=== PATIENT | female | born 1975 | race Caucasian/White ===

== ENCOUNTER 2018-05-25 08:55 | Inpatient (IN) | payer OTHER ==
[2018-05-25 10:49] VITALS: BMI 22.6
--- NOTE | 2018-05-25 11:12 | HP ---
COWS - Scale Resting Pulse: 1= MS 81-100 Sweatin= Chills/Flushing Restless Observation: 1= Difficult to Sit Still Pupil Size: 1= Pupils >than Normal Bone or Joint Aches: 2= Severe Diffuse Aches Runny Nose/ Eye Tearin= Nasal Congestion GI Upset > 30mins: 2= Nausea/Diarrhea Tremor Observation: 2= Slight Tremor Visible Yawning Observation: 2= >3x During Session Anxiety or Irritability: 2=Irritable/Anxious Goose Flesh Skin: 0=Smooth Skin COWS Score: 15 CIWA Score - Admission Criteria [facility] Guidelines: Admission for Medically Managed Detox: Requires at least one of the followin. CIWA greater than 12 2. Seizures within the past 24 hours 3. Delirium tremens within the past 24 hours 4. Hallucinations within the past 24 hours 5. Acute intervention needed for co occurring medical disorder 6. Acute intervention needed for co occurring psychiatric disorder 7. Severe withdrawal that cannot be handled at a lower level of care (continued vomiting, continued diarrhea, abnormal vital signs) requiring intravenous medication and/or fluids 8. Admission ROS [facility] - HPI Chief Complaint: i need help to stop using heroin and cocaine Allergies/Adverse Reactions: Allergies Allergy/AdvReac Type Severity Reaction Status Date / Time haloperidol [From Haldol] Allergy Severe Rash Verified 05/25/18 10:39 History of Present Illness: this 42 years old female with heroin and cocaine dependence seeking detox, withdrawal symptom,never been in detox before, history of asthma hepatitis c injury 10 days ago seen at [facility] in [place],was told to have fx of left rib injury to left 2nd toe no xray done longest period of sobriety 9 years plan to go to rehab from detox Exam Limitations: No Limitations - Ebola screening Have you traveled outside of the country in the last 21 days: No Have you had contact with anyone from an Ebola affected area: No Have you been sick,other than usual withdrawal symptoms: No - Review of Systems Constitutional: Loss of Appetite, Malaise, Night Sweats, Changes in sleep, Weakness EENT: reports: Tearing, Nose Congestion Respiratory: reports: No Symptoms reported Cardiac: reports: No Symptoms Reported GI: reports: Nausea, Poor Appetite, Vomiting, Abdominal cramping : reports: No Symptoms Reported Musculoskeletal: reports: Back Pain, Joint Pain, Muscle Pain, Joint Stiffness Integumentary: reports: Dryness Neuro: reports: No Symptoms reported, Headache, Tremors Endocrine: reports: No Symptoms Reported Hematology: reports: No Symptoms Reported Psychiatric: reports: No Sypmtoms Reported, Judgement Intact, Mood/Affect Appropiate, Orientated x3, other (schizophrenia) Patient History - Patient Medical History Hx Anemia: No Hx Asthma: Yes (on albuterol inhaler) Hx Chronic Obstructive Pulmonary Disease (COPD): No Hx Cancer: No Hx Cardiac Disorders: No Hx Congestive Heart Failure: No Hx Hypertension: No Hx Hypercholesterolemia: No Hx Pacemaker: No HX Cerebrovascular Accident: No Hx Seizures: No Hx Dementia: No Hx Diabetes: No Hx Gastrointestinal Disorders: No Hx Liver Disease: Yes (hepatitis c) Hx Genitourinary Disorders: No Hx Sexually Transmitted Disorders: No Hx Renal Disease (ESRD): No Hx Thyroid Disease: No Hx Human Immunodeficiency Virus (HIV): No (05/24 negative) Hx Hepatitis C: Yes (not treated) Hx Depression: No Hx Suicide Attempt: Yes (cutter) Hx Bipolar Disorder: No Hx Schizophrenia: Yes - Patient Surgical History Hx Section: Yes (x 2 last 18 years ago) - PPD History Previous Implant?: Yes Documented Results: Negative w/o proof Implanted On Prior [facility] Admission?: No PPD to be Administered?: Yes - Reproductive History Patient is a Female of Child Bearing Age (11 -55 yrs old): Yes Last Menstrual Period: 03/14/18 Patient : No - Smoking Cessation Smoking history: Current every day smoker Have you smoked in the past 12 months: Yes Aproximately how many cigarettes per day: 3 Hx Chewing Tobacco Use: No Initiated information on smoking cessation: Yes 'Breaking Loose' booklet given: 05/25/18 - Substance & Tx. History Hx Alcohol Use: No Hx Substance Use: Yes Substance Use Type: Cocaine, Heroin, Marijuana - Substances Abused Marijuana Route: Smoking Frequency: 1-2 times per week Amount used: $5 Age of first use: 14 Date of Last Use: 05/23/18 Heroin Route: Injection Frequency: Daily Amount used: 7 bags Age of first use: 14 Date of Last Use: 05/24/18 Crack Route: Smoking Frequency: 1-2 times per week Amount used: $20 Age of first use: 14 Date of Last Use: 05/24/18 Family Disease History - Family Disease History Family History: Denies Admission Physical Exam [facility] - Vital Signs Vital Signs: Vital Signs - 24 hr 05/25/18 10:32 Temperature 97.1 F L Pulse Rate 87 Respiratory 20 Rate Blood Pressure 133/85 - Physical General Appearance: Yes: Moderate Distress, Tremorous, Irritable, Sweating, Anxious HEENTM: Yes: Normal ENT Inspection, DYLAN, Pharynx Normal Respiratory: Yes: Lungs Clear, Normal Breath Sounds, No Respiratory Distress, Other (fx of left ribs) Neck: Yes: Within Normal Limits, Supple, Trachea in good position Breast: Yes: Breast Exam Deferred Cardiology: Yes: Within Normal Limits, Regular Rhythm, Regular Rate, S1, S2 Abdominal: Yes: Within Normal Limits, Normal Bowel Sounds, Non Tender Genitourinary: Yes: Within Normal Limits Musculoskeletal: Yes: full range of Motion, Back pain, Joint Stiffness, Muscle Pain Extremities: Yes: Tremors, Other (swelling with pain in left 2nd toe with tenderness) Neurological: Yes: Within Normal Limits, labor economist II-XII NML intact, Alert, Motor Strength 5/5 Integumentary: Yes: Dry, Track Ortega (both upper and loer extremities) Lymphatic: Yes: Within Normal Limits - Diagnostic (1) Opioid dependence with withdrawal Current Visit: Yes Status: Acute (2) Cocaine dependence Current Visit: Yes Status: Chronic (3) Cannabis dependence Current Visit: Yes Status: Chronic (4) Hepatitis C Current Visit: Yes Status: Acute (5) Nicotine dependence Current Visit: Yes Status: Acute (6) Schizophrenia Current Visit: Yes Status: Suspected (7) Fracture of rib of left side Current Visit: Yes Status: Acute (8) Contusion of second toe, left Current Visit: Yes Status: Acute (9) IV drug user Current Visit: Yes Status: Acute Cleared for Admission [facility] - Detox or Rehab [facility] Level of Care: Medically Managed Detox Regimen/Protocol: Methadone [facility] Breath Alcohol Content Breath Alcohol Content: 0 Urine Pregancy Test - Result Urine Test Results: Negative- NO Line Present Urine Drug Screen - Results Drug Screen Negative: No Urine Drug Screen Results: THC-Marijuana, LAM-Cocaine, OPI-Opiates, MTD- Methadone, FEN-Fentanyl
[2018-05-25] MEDS ORDERED: guaiFENesin/D-METHORPHAN HB 10 ML UNIT-DOSE CUPS PO PRN (11:47)
[2018-05-25] MEDS ORDERED: MENTHOL/PHENOL 1 EACH UD MM PRN (11:47)
[2018-05-25] MEDS ORDERED: MAG HYDROX/AL HYDROX/SIMETH 30 ML UNIT-DOSE CUP PO PRN (11:47)
[2018-05-25] MEDS ORDERED: LOPERAMIDE HCL 2 MG CAPSULE PO PRN (11:47)
[2018-05-25] MEDS ORDERED: ACETAMINOPHEN 325 MG TABLET (FP) PO PRN (11:47)
[2018-05-25] MEDS ORDERED: MAGNESIUM CITRATE 300 ML BOTTLE PO PRN (11:47)
[2018-05-25] MEDS ORDERED: MAGNESIUM HYDROX 2400MG/30ML ORAL SUSPENSION 30 ML CUP PO PRN (11:47)
[2018-05-25] MEDS ORDERED: IBUPROFEN 400 MG TABLET (FP) PO PRN (11:47)
[2018-05-25] MEDS ORDERED: P-EPHED 60MG/TRIPROLIDI 2.5MG TABLET PO PRN (11:47)
[2018-05-25] MEDS ORDERED: ALBUTEROL SO4 8 GM HFA INHALER IH PRN (11:54)
[2018-05-25] MEDS ORDERED: METHADONE HCL 10 MG TABLET (FOR DETOX USE ONLY) PO ONE ×2 (12:45→23:00)
[2018-05-25] MEDS: diazePAM 5 MG TABLET PO PRN (12:48)
[2018-05-25] MEDS: CYCLOBENZAPRINE HCL 10 MG TABLET (FP) PO PRN (12:49)
[2018-05-25] MEDS: THIAMINE HCL 100 MG TABLET (FP) PO SCH (22:46)
[2018-05-25] MEDS: cloNIDine HCL 0.1 MG TABLET PO SCH (22:47)
[2018-05-26] MEDS ORDERED: METHADONE HCL 10 MG TABLET (FOR DETOX USE ONLY) PO ONE (10:00)
[2018-05-26 10:18] LABS: HEMATOCRIT 39.6 % (32.4-45.2); HEMOGLOBIN 13.1 GM/dL (10.7-15.3); MCH 29.4 pg (25.7-33.7); MCHC 33.1 g/dl (32.0-36.0); MEAN CELL VOLUME 88.8 fl (80-96); MEAN PLT VOLUME 7.1 fl (7.5-11.1); PLATELET COUNT 425 K/MM3 (134-434); RBC 4.46 M/mm3 (3.60-5.2); RDW 16.7 % (11.6-15.6); WHITE BLOOD COUNT 11.7 K/mm3 (4.0-10.0)
[2018-05-26] MEDS: diazePAM 5 MG TABLET PO PRN ×2 (10:23→15:30)
[2018-05-26] MEDS: PRENATAL VITAMINS W/ FOLIC ACID TABLET (FP) PO SCH (10:23)
[2018-05-26] MEDS: cloNIDine HCL 0.1 MG TABLET PO SCH ×2 (10:23→22:34)
[2018-05-26 10:52] LABS: ALBUMIN 3.6 g/dl (3.4-5.0); ALK PHOS 90 U/L (45-117); ANION GAP 9 MMOL/L (8-16); BILIRUBIN,TOTAL 0.6 mg/dL (0.2-1); BLOOD UREA NITROGEN 17 mg/dL (7-18); CHLORIDE 106 mmol/L (98-107); CO2 24 mmol/L (21-32); CREATININE 0.5 mg/dL (0.55-1.3); GLUCOSE,RANDOM 100 mg/dL (74-106); POTASSIUM 3.9 mmol/L (3.5-5.1); SGOT/AST 33 U/L (15-37); SGPT/ALT 48 U/L (13-61); SODIUM 138 mmol/L (136-145); TOT PROT 7.1 g/dl (6.4-8.2)
--- NOTE | 2018-05-26 14:04 | PN ---
BHS COWS - Scale Resting Pulse: 1= DE 81-100 Sweatin= No chills or Flushing Restless Observation: 1= Difficult to Sit Still Pupil Size: 2= Moderately Dilated Bone or Joint Aches: 2= Severe Diffuse Aches Runny Nose/ Eye Tearin= None GI Upset > 30mins: 0= None Tremor Observation of Outstretched Hands: 2= Slight Tremor Visible Yawning Observation: 0= None Anxiety or Irritability: 2=Irritable/Anxious Goose Flesh Skin: 0=Smooth Skin COWS Score: 10 BHS Progress Note (SOAP) Subjective: PATIENT C/O ANXIETY, SHAKES AND BODY ACHES. Objective: 05/26/18 14:01 Vital Signs Temperature 98.4 F 05/26/18 13:46 Pulse Rate 120 H 05/26/18 13:46 Respiratory Rate 16 05/26/18 13:46 Blood Pressure 105/70 05/26/18 13:46 O2 Sat by Pulse Oximetry (%) Laboratory Tests 05/26/18 05/26/18 05/26/18 06:00 06:00 06:00 WBC 11.7 H RBC 4.46 Hgb 13.1 Hct 39.6 MCV 88.8 MCH 29.4 MCHC 33.1 RDW 16.7 H Plt Count 425 MPV 7.1 L Sodium 138 Potassium 3.9 Chloride 106 Carbon Dioxide 24 Anion Gap 9 BUN 17 Creatinine 0.5 L Creat Clearance w eGFR > 60 Random Glucose 100 Calcium 9.0 Total Bilirubin 0.6 AST 33 ALT 48 Alkaline Phosphatase 90 Total Protein 7.1 Albumin 3.6 RPR Titer Nonreactive PE: ALERT AND ORIENTED X 3 SKIN WARM AND DRY CAR S1S2 RESP CTA BL EXT FULL ROM, AMB AD KESHAWN, MILD TREMORS VISIBLE ANXIOUS Assessment: 05/26/18 14:03 WITHDRAWAL SX Plan: CONTINUE DETOX ENCOURAGE ORAL FLUIDS PSYCH CONSULT ORDERED AND PENDING XRAY ORDERED, RESULTS PENDING CONTINUE TO MONITOR
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
[2018-05-26] MEDS: THIAMINE HCL 100 MG TABLET (FP) PO SCH (22:30)
[2018-05-26] MEDS: QUEtiapine FUMARATE 50 MG TABLET PO SCH (22:32)
[2018-05-26] MEDS: MELATONIN 5 MG TABLETS PO PRN (22:32)
[2018-05-27] MEDS ORDERED: METHADONE HCL 5 MG TABLET (FOR DETOX USE ONLY) PO ONE (10:00)
[2018-05-27] MEDS: diazePAM 5 MG TABLET PO PRN ×3 (10:19→22:10)
[2018-05-27] MEDS: PRENATAL VITAMINS W/ FOLIC ACID TABLET (FP) PO SCH (10:19)
[2018-05-27] MEDS: cloNIDine HCL 0.1 MG TABLET PO SCH ×2 (10:19→22:10)
--- NOTE | 2018-05-27 11:14 | PN ---
BHS COWS - Scale Resting Pulse: 0= IN 80 or Below Sweatin=Flushed/Facial Moisture Restless Observation: 0= Sits Still Pupil Size: 2= Moderately Dilated Bone or Joint Aches: 2= Severe Diffuse Aches Runny Nose/ Eye Tearin= None GI Upset > 30mins: 0= None Tremor Observation of Outstretched Hands: 0= None Yawning Observation: 2= >3x During Session Anxiety or Irritability: 2=Irritable/Anxious Goose Flesh Skin: 0=Smooth Skin COWS Score: 10 BHS Progress Note (SOAP) Subjective: PATIENT C/O BODY ACHES, ANXIETY, SWEATING,FEELING TIRED. Objective: 05/27/18 11:12 Vital Signs Temperature 97.8 F 05/27/18 09:48 Pulse Rate 87 05/27/18 09:48 Respiratory Rate 18 05/27/18 09:48 Blood Pressure 102/82 05/27/18 09:48 O2 Sat by Pulse Oximetry (%) Laboratory Tests 05/26/18 05/26/18 05/26/18 06:00 06:00 06:00 WBC 11.7 H RBC 4.46 Hgb 13.1 Hct 39.6 MCV 88.8 MCH 29.4 MCHC 33.1 RDW 16.7 H Plt Count 425 MPV 7.1 L Sodium 138 Potassium 3.9 Chloride 106 Carbon Dioxide 24 Anion Gap 9 BUN 17 Creatinine 0.5 L Creat Clearance w eGFR > 60 Random Glucose 100 Calcium 9.0 Total Bilirubin 0.6 AST 33 ALT 48 Alkaline Phosphatase 90 Total Protein 7.1 Albumin 3.6 RPR Titer Nonreactive PE: ALERT AND ORIENTED X 3 SKIN WARM, +FACIAL FLUSHING CAR S1S2 RESP CTA BL EXT FULL ROM, AMB AD KESHAWN ANXIOUS 05/27/18 11:14 Assessment: 05/27/18 11:13 WITHDRAWAL SX Plan: CONTINUE DETOX ENCOURAGE ORAL FLUIDS CONTINUE TO MONITOR CLINICALLY
[2018-05-27] MEDS: CYCLOBENZAPRINE HCL 10 MG TABLET (FP) PO PRN (22:09)
[2018-05-27] MEDS: THIAMINE HCL 100 MG TABLET (FP) PO SCH (22:10)
[2018-05-27] MEDS: QUEtiapine FUMARATE 50 MG TABLET PO SCH (22:10)
[2018-05-28] MEDS ORDERED: METHADONE HCL 5 MG TABLET (FOR DETOX USE ONLY) PO ONE (10:00)
[2018-05-28] MEDS: cloNIDine HCL 0.1 MG TABLET PO SCH ×2 (10:13→22:20)
[2018-05-28] MEDS: diazePAM 5 MG TABLET PO PRN (10:13)
[2018-05-28] MEDS: PRENATAL VITAMINS W/ FOLIC ACID TABLET (FP) PO SCH (10:13)
--- NOTE | 2018-05-28 13:17 | PN ---
BHS Progress Note (SOAP) Subjective: alert,irritable,anxious,interrupted sleep,pain i the body and back Objective: 05/28/18 13:15 Vital Signs Temperature 98.1 F 05/28/18 09:34 Pulse Rate 96 H 05/28/18 09:34 Respiratory Rate 16 05/28/18 09:34 Blood Pressure 115/76 05/28/18 09:34 O2 Sat by Pulse Oximetry (%) Assessment: 05/28/18 13:16 withdrawal symptom Plan: continue detox
[2018-05-28] MEDS: hydrOXYzine PAMOATE 25 MG CAPSULE (FP) PO PRN (17:45)
[2018-05-28] MEDS: QUEtiapine FUMARATE 50 MG TABLET PO SCH (22:20)
[2018-05-28] MEDS: THIAMINE HCL 100 MG TABLET (FP) PO SCH (22:20)
[2018-05-28] MEDS: MELATONIN 5 MG TABLETS PO PRN (22:21)
[2018-05-29] MEDS ORDERED: METHADONE HCL 10 MG TABLET (FOR DETOX USE ONLY) PO ONE (10:00)
[2018-05-29] MEDS: cloNIDine HCL 0.1 MG TABLET PO SCH ×2 (10:07→22:22)
[2018-05-29] MEDS: PRENATAL VITAMINS W/ FOLIC ACID TABLET (FP) PO SCH (10:07)
[2018-05-29] MEDS: CYCLOBENZAPRINE HCL 10 MG TABLET (FP) PO PRN (10:07)
[2018-05-29] MEDS: hydrOXYzine PAMOATE 25 MG CAPSULE (FP) PO PRN ×2 (10:07→18:34)
--- NOTE | 2018-05-29 16:37 | PN ---
S Progress Note (SOAP) Subjective: Sweating, tremor, numbness in fingers, interrupted sleep Objective: 05/29/18 16:35 Last Vital Signs Temp Pulse Resp BP Pulse Ox 97.0 F L 93 H 16 114/66 05/29/18 13:52 05/29/18 13:52 05/29/18 13:52 05/29/18 13:52 Laboratory Tests 05/26/18 05/26/18 05/26/18 06:00 06:00 06:00 WBC 11.7 H RBC 4.46 Hgb 13.1 Hct 39.6 MCV 88.8 MCH 29.4 MCHC 33.1 RDW 16.7 H Plt Count 425 MPV 7.1 L Sodium 138 Potassium 3.9 Chloride 106 Carbon Dioxide 24 Anion Gap 9 BUN 17 Creatinine 0.5 L Creat Clearance w eGFR > 60 Random Glucose 100 Calcium 9.0 Total Bilirubin 0.6 AST 33 ALT 48 Alkaline Phosphatase 90 Total Protein 7.1 Albumin 3.6 RPR Titer Nonreactive Labs reviewed: wbc 11.7 Assessment: 05/29/18 16:36 Withdrawal symptoms Leukocytosis noted Plan: Continue detox Encouraged PO water intake Leukocytosis: asymptomatic, repeat CBC
[2018-05-29] MEDS: THIAMINE HCL 100 MG TABLET (FP) PO SCH (22:22)
[2018-05-29] MEDS: MELATONIN 5 MG TABLETS PO PRN (22:23)
[2018-05-29] MEDS: QUEtiapine FUMARATE 50 MG TABLET PO SCH (22:23)
[2018-05-30] MEDS ORDERED: METHADONE HCL 5 MG TABLET (FOR DETOX USE ONLY) PO ONE (06:00)
[2018-05-30 09:10] VITALS: BP 117/72; PULSE 102; TEMP 97.7
[2018-05-30] MEDS: PRENATAL VITAMINS W/ FOLIC ACID TABLET (FP) PO SCH (10:26)
[2018-05-30] MEDS: cloNIDine HCL 0.1 MG TABLET PO SCH (10:26)
[2018-05-30 10:51] LABS: BASO % 0.7 % (0-2.0); EOS % 4.1 % (0-4.5); HEMOGLOBIN 12.3 GM/dL (10.7-15.3); LYMPH % 30.9 % (8-40); MCH 29.1 pg (25.7-33.7); MCHC 32.2 g/dl (32.0-36.0); MEAN CELL VOLUME 90.1 fl (80-96); MEAN PLT VOLUME 6.8 fl (7.5-11.1); MONO % 7.2 % (3.8-10.2); NEUT % 57.1 % (42.8-82.8); PLATELET COUNT 341 K/MM3 (134-434); RBC 4.22 M/mm3 (3.60-5.2); RDW 16.2 % (11.6-15.6); WHITE BLOOD COUNT 8.4 K/mm3 (4.0-10.0)
[2018-05-30 14:28] LABS: ANISOCYTOSIS 1+; MACROCYTOSIS 0; PLATELET ESTIMATE NORMAL
--- NOTE | 2018-05-30 18:37 | PN ---
BHS Progress Note (SOAP) Subjective: no new complaints offered Objective: 05/30/18 18:36 not in acute distress ambulating steadily and freely on unit Vital Signs Temperature 97.7 F 05/30/18 09:10 Pulse Rate 102 H 05/30/18 09:10 Respiratory Rate 20 05/30/18 09:10 Blood Pressure 117/72 05/30/18 09:10 O2 Sat by Pulse Oximetry (%) Assessment: 05/30/18 18:37 detox completed Plan: for d/c
--- NOTE | 2018-05-30 18:42 | DS ---
[facility] Detox Discharge Summary Admission Date: 05/25/18 Discharge Date: 05/30/18 - History Additional Comments: pt declined in patient bed at [facility] rehab stated she will do outpt rehab in her community by attending meetings declines any prescription refills Pertinent Past History: asthma HEP C - Physical Exam Results Vital Signs: Vital Signs Temperature 97.7 F 05/30/18 09:10 Pulse Rate 102 H 05/30/18 09:10 Respiratory Rate 20 05/30/18 09:10 Blood Pressure 117/72 05/30/18 09:10 O2 Sat by Pulse Oximetry (%) Pertinent Admission Physical Exam Findings: WITHDRAWAL SX - Treatment Hospital Course: Detox Protocol Followed, Detoxed Safely, Responded well, Discharged Condition Good Patient has Accepted a Rehab Referral to: OUTPATIENT MEETINGS - Medication Discharge Medications: Ambulatory Orders Albuterol Sulfate Inhaler - [Ventolin Hfa Inhaler -] 2 inh PO Q4H PRN 05/25/18 Quetiapine Fumarate [Seroquel -] 50 mg PO HS 05/25/18 Zolpidem Tartrate [Ambien] 10 mg PO HS 05/25/18 - Diagnosis (1) Contusion of second toe, left Status: Acute (2) Fracture of rib of left side Status: Acute (3) IV drug user Status: Acute (4) Opioid dependence with withdrawal Status: Acute (5) Asthma Status: Chronic (6) Cannabis dependence Status: Chronic (7) Cocaine dependence Status: Chronic (8) Hepatitis C Status: Chronic (9) Nicotine dependence Status: Chronic (10) Schizophrenia Status: Suspected - AMA Did Patient Leave Against Medical Advice: No
== END 2018-05-30 12:12 | disposition home or self-care (01) | DRG 773 ==
LOC: YASAS 08:55 → Y3N 11:07
PROC: HZ2ZZZZ Detoxification Services for Substance Abuse Treatment (ICD-10-PCS; principal; 2018-05-26)
DX: F11.23 Opioid dependence with withdrawal (principal); F14.20 Cocaine dependence, uncomplicated; F12.20 Cannabis dependence, uncomplicated; F17.210 Nicotine dependence, cigarettes, uncomplicated; F20.9 Schizophrenia, unspecified; J45.909 Unspecified asthma, uncomplicated; B18.2 Chronic viral hepatitis C; D72.829 Elevated white blood cell count, unspecified; S90.122S Contusion of left lesser toe(s) without damage to nail, sequela; X58.XXXS Exposure to other specified factors, sequela; Z91.5 Personal history of self-harm; Z59.0 Homelessness
CPT/HCPCS: 36415; 73660-TC-LT-FY; 80053; 85025; 85027; 86593; J0735